=== PATIENT | female | born 1950 | race Caucasian/White ===

== ENCOUNTER → 2016-10-16 | Outpatient (CLI) | payer OTHER ==
[~2016-10-16] MED LIST: CALC1TAB87 PO; GABA100C4 PO; GABA300C5 PO; HYDR-3533 PO; HYDR12.57 PO; IMIT25TA PO; KETO10 PO; PANT20 PO; TAMS5CAP PO; TRIA40P I-ARTICULR; ZOFR4TAB3 SL; ZOLP10TA3 PO; [UNRECOGNIZED DRUG - CODE]
[2016-10-16 10:04] LABS: ALKALINE PHOSPHATASE 117 U/L (45-117); ALT (GPT) 20 U/L (10-53); ANION GAP 10 MEQ/L (5-15); AST (GOT) 16 U/L (15-37); BICARBONATE 23.1 MEQ/L (21.0-32.0); BLOOD UREA NITROGEN 13 MG/DL (7-18); CHLORIDE 107 MEQ/L (98-107); GLOMERULAR FILTRATION RATE 85 ML/MIN (>89); GLUCOSE,FASTING 93 MG/DL (74-99); POTASSIUM 3.6 MEQ/L (3.5-5.1); SODIUM (NA) 140 MEQ/L (136-145); TOTAL BILIRUBIN ADULT 0.4 MG/DL (0.2-1.0)
== END ==
LOC: CLAB 09:20
PROVIDERS: ATTEND Internal Medicine Endocrinology, Diabetes & Metabolism
DX: E21.0 Primary hyperparathyroidism (principal); N25.81 Secondary hyperparathyroidism of renal origin
CPT/HCPCS: 36415; 80053; 82652; 83970

== ENCOUNTER → 2016-12-13 | Outpatient (CLI) | payer OTHER, MEDICARE | LOC: CLAB 07:07 | PROVIDERS: ATTEND Family Medicine | DX: E03.9 Hypothyroidism, unspecified (principal) | CPT/HCPCS: 36415; 84443 ==

== ENCOUNTER 2017-01-29 00:43 | Emergency (ER) | payer MEDICARE, OTHER ==
[~2017-01-29] VITALS: Ht 172.7 cm; Wt 88.0 kg
[~2017-01-29 00:43] MED LIST changes: -GABA100C4 PO; -KETO10 PO; -TAMS5CAP PO; -TRIA40P I-ARTICULR; -[UNRECOGNIZED DRUG - CODE]
[2017-01-29 00:50] VITALS: BP 227/97; PULSE 65; RESP 18; TEMP 98; O2SAT 99
[2017-01-29 01:35] LABS: BACTERIA, URINE RARE /hpf; BLOOD, URINE NEG (NEG); COMMENT (UR) CULT NOT INDICATED; CULTURE IF INDICATED CULT NOT INDICATED; GLUCOSE,URINE NEG (NEG); KETONE, URINE 10 mg/dL (NEG); NITRITE,URINE NEG (NEG); PH, URINE 5.5 (5.0-8.5); SQUAMOUS EPITHELIAL CELL URINE 1 /hpf (0-5); URINE COLOR LIGHT-YELLOW (YELLW/STRAW)
[2017-01-29 01:39] VITALS: BP 179/77; PULSE 66; RESP 18; O2SAT 98
[2017-01-29] MEDS ORDERED: SODIUM CHLORID 0.9% 500 ML INJ 500 ML IV ONE (01:45)
[2017-01-29] MEDS ORDERED: KETOROLAC TROMETHAMINE 30 MG/ML (IVP) VIAL IV PUSH ONE (02:00)
[2017-01-29 02:09] LABS: AUTOMATED NEUTROPHIL # 7.4 TH/MM3 (1.8-7.7); BASOPHIL # 0.1 TH/MM3 (0-0.2); BASOPHIL % 0.9 % (0.0-2.0); EOSINOPHIL # 0.1 TH/MM3 (0-0.4); EOSINOPHIL % 1.1 % (0.0-4.0); HEMATOCRIT 37.3 % (35.0-46.0); LYMPH % 14.9 % (9.0-44.0); LYMPHOCYTE # 1.5 TH/MM3 (1.0-4.8); MEAN CELL VOLUME 74.4 FL (80.0-100.0); MEAN CORPUSCULAR HEMOGLOBIN 24.3 PG (27.0-34.0); MEAN CORPUSCULAR HGB CONC 32.7 % (32.0-36.0); MONO % 10.5 % (0.0-8.0); NEUT % 72.6 % (16.0-70.0); PLATELET COUNT 259 TH/MM3 (150-450); RED BLOOD COUNT 5.01 MIL/MM3 (4.00-5.30); RED CELL DISTRIBUTION WIDTH 19.8 % (11.6-17.2); WHITE BLOOD COUNT 10.2 TH/MM3 (4.0-11.0)
[2017-01-29 02:17] LABS: HEMO FLAGS AUTO DIFF
[2017-01-29 02:21] LABS: ALT (GPT) 22 U/L (10-53); ANION GAP 8 MEQ/L (5-15); AST (GOT) 22 U/L (15-37); BICARBONATE 22.8 MEQ/L (21.0-32.0); BLOOD UREA NITROGEN 11 MG/DL (7-18); CHLORIDE 108 MEQ/L (98-107); GLOMERULAR FILTRATION RATE 69 ML/MIN (>89); POTASSIUM 3.8 MEQ/L (3.5-5.1); SODIUM (NA) 139 MEQ/L (136-145)
[2017-01-29 02:23] LABS: ALKALINE PHOSPHATASE 137 U/L (45-117); TOTAL BILIRUBIN ADULT 0.3 MG/DL (0.2-1.0)
[2017-01-29 02:45] VITALS: BP 182/77; PULSE 63; RESP 18; O2SAT 98
--- NOTE | 2017-01-29 02:56 | RADRPT ---
EXAM DATE/TIME: 01/29/2017 02:12 [place] COMPARISON: CT ABDOMEN & PELVIS W/O CONTRAST, October 26, 2013, 20:57. INDICATIONS : Left flank pain. ORAL CONTRAST: No oral contrast ingested. RADIATION DOSE: 20.85 CTDIvol (mGy) MEDICAL HISTORY : Renal calculi. Hypertension. SURGICAL HISTORY : Gastric bypass. Tubal ligation.Cholecystectomy. ENCOUNTER: Initial ACUITY: 1 day PAIN SCALE: 5/10 LOCATION: Left flank TECHNIQUE: Volumetric scanning of the abdomen and pelvis was performed. Using automated exposure control and ad justment of the mA and/or kV according to patient size, radiation dose was kept as low as reasonably achievable to obtain optimal diagnostic quality images. FINDINGS: There is parenchymal scarring on the left. The liver and spleen are normal in size and no focal defec ts are identified. There is previous gastric bypass. The gallbladder is absent. The pancreas demonstr ates normal contour without evidence of mass or ductal dilatation. The adrenal glands are unremarkabl e. The right kidney is unremarkable. There is left hydronephrosis and hydroureter with 2 4 mm stone i nvolving the distal ureter as well as a tiny punctate stone measuring 1 mm at the left ureterovesical junction. No abnormally enlarged lymph nodes are identified. Examination of the pelvis demonstrates no evidence of free fluid or pelvic mass. No abnormally enlarg ed inguinal or retroperitoneal lymph nodes are present. The bladder is unremarkable. CONCLUSION: 1. Left-sided hydronephrosis and hydroureter with 2 4 mm stones involving the distal ureter as above. Gregg Garcia MD on January 29, 2017 at 2: 2. 47 Board Certified Radiologist. This report was verified electronically.
[2017-01-29] MEDS ORDERED: TAMS5CAP PO (03:05)
[2017-01-29] MEDS ORDERED: HYDR-3533 PO (03:05)
--- NOTE | 2017-01-29 03:05 | PD ---
HPI Chief Complaint: Flank/Kidney Pain Time Seen by Provider: 01:43 Travel History International Travel<30 days: No Contact w/Intl Traveler<30days: No Traveled to known affect area: No History of Present Illness HPI The patient is a 66 year old female who presents to the [facility] emergency department with a history of left flank pain that she reports began at approximately 10:22 PM. She reports that the pain is very similar to when she's had kidney stones in the past. She reports that her urologist is Dr. Freitas. She reports that she last had a kidney stone 2-3 years ago that required nephrostomy tube placement. She denies having any fevers or chills. She reports that she's had dry heaving 4. She denies having any diarrhea. Her last bowel movement was earlier today. She denies having any blood in her stool or black or tarry stools. She denies having any dysuria, however she has had urinary frequency and urgency this evening. The patient reports that the pain radiates around into the left lower quadrant of the abdomen. On review of systems, the patient denies any cough, congestion, neck pain, chest pain, shortness of breath, or neurologic symptoms. [facility] Past Medical History Narrative Medical The patient's past medical history is significant for kidney stones, history of GI bleed thought to be related to internal hemorrhoids, history of hyperparathyroidism status post parathyroidectomy, migraine headaches, history of hypertension, insomnia Blood Disorders: No Anxiety: No Depression: No Heart Rhythm Problems: No Cancer: No Cardiovascular Problems: Yes (USED TO TAKE rx) High Cholesterol: Yes (used to be on RX) Chest Pain: No Congestive Heart Failure: No Diabetes: No Diminished Hearing: No Endocrine: No Gastrointestinal Disorders: Yes (GASTRIC BYPASS 2011) Genitourinary: No Hepatitis: No Hiatal Hernia: Yes (REPAIRED IN GASTRIC BYPASS) Hypertension: Yes (HISTORY OF, NONE POST GASTRIC BYPASS) Immune Disorder: No Implanted Vascular Access Dvce: Yes Kidney Stones: Yes Musculoskeletal: Yes (HX OF LOWER BACK PROBLEMS) Neurologic: Yes (maigraines OTT) Psychiatric: Yes (SOME CLAUSTROPHOBIA) Reproductive: No Respiratory: Yes (HX OF SLEEP APNEA, NONE POST GASTRIC BYPASS, QUIT SMOKING 10 YEARS AGO) Immunizations Current: Yes Migraines: Yes Sleep Apnea: Yes (USES CPAP) Thyroid Disease: No Tetanus Vaccination: Unknown Influenza Vaccination: Yes Menopausal: Yes Tubal Ligation: Yes Past Surgical History Narrative Surgical The patient's past surgical history is significant for parathyroidectomy, tubal ligation, cholecystectomy, discectomy, breast reduction, right rotator cuff repair, Lasik eye surgery, nephrostomy tube placement. Abdominal Surgery: Yes ( BARIATRIC SURGERY 2011, CHOLECYSTECTOMY 1996) AICD: No Body Medical Devices: CLIPS FROM GALL BLADDER REMOVAL Cholecystectomy: Yes Genitourinary Surgery: Yes (PERCUTANEOUS NEPH TUBE 08/14,NEPHROURETERAL STENT ,STONE REMOVED 08/14) Gynecologic Surgery: Yes (TUBAL LIGATION 1995) Joint Replacement: No Pacemaker: No Thoracic Surgery: Yes (BILATERAL BREAST REDUCTION) Other Surgery: Yes Social History Alcohol Use: No Tobacco Use: No Substance Use: No Allergies-Medications (Allergen,Severity, Reaction): Coded Allergies: No Known Allergies (Verified , 01/04/17) Reported Meds & Prescriptions Reported Meds & Active Scripts Active Lortab (Hydrocodone-Acetaminophen) 5-325 Mg Tab 1 Tab PO Q6H PRN Flomax (Tamsulosin HCl) 0.4 Mg Cap 0.4 Mg PO HS Hydrochlorothiazide 12.5 Mg Cap 12.5 Mg PO BID Lortab (Hydrocodone-Acetaminophen) 5-325 Mg Tab 1 Tab PO Q4H PRN Gabapentin 300 Mg Cap 300 Mg PO TID Zolpidem (Zolpidem Tartrate) 10 Mg Tab 10 Mg PO HS PRN Zofran Odt (Ondansetron Odt) 4 Mg Tab 4 Mg SL Q6HR PRN Imitrex (Sumatriptan Succinate) 25 Mg Tab 25 Mg PO ONCE PRN If a satisfactory response has not been obtained at 2 hours, a second dose may be administered Reported Calcium 600 with Vitamin D (Calcium Carbonate-Cholecalciferol) 600-400 mg-Unit Tab 1 Tab PO TID Review of Systems Except as stated in HPI: all other systems reviewed are Neg General / Constitutional: No: Fever Eyes: No: Visual changes HENT: No: Headaches Cardiovascular: No: Chest Pain or Discomfort Respiratory: No: Shortness of Breath Gastrointestinal: Positive: Nausea, Vomiting, Abdominal Pain, No: Diarrhea, Hematemesis, Hematochezia, Constipation, Changes in Bowel Habits, Indigestion, Loss of Appetite Genitourinary: Positive: Urgency, Frequency, Flank Pain (left flank pain), No : Dysuria Musculoskeletal: No: Pain Skin: No Rash Neurologic: No: Weakness Psychiatric: No: Depression Endocrine: No: Polydipsia Hematologic/Lymphatic: No: Easy Bruising Physical Exam Narrative General: The patient is a well-developed well-nourished female, uncomfortable appearing on arrival, holding her left flank. Head and Neck exam: Head is normocephalic atraumatic. Eyes: EOMI, pupils are equal round and reactive to light. Nose: Midline septum with pink mucous membranes Mouth: Dentition unremarkable. Moist mucus membranes. Posterior oropharynx is not erythematous. No tonsillar hypertrophy. Uvula midline. Airway patent. Neck: No palpable lymphadenopathy. No nuchal rigidity. No thyromegaly. Cardiovascular: Regular rate and rhythm without murmurs, gallops, or rubs. Lungs: Clear to auscultation bilaterally. No wheezes, rhonchi, or rales. Abdomen: Soft, without tenderness to palpation in all 4 quadrants of the abdomen. No guarding, rebound, or rigidity. Normal bowel sounds are audible. No tenderness on palpation of McBurney's point. Negative [place] sign. Extremities: No clubbing, cyanosis, or edema. 2+ pulses in all 4 extremities. No calf tenderness on palpation. Back: No spinous process tenderness to palpation. No costovertebral angle tenderness to palpation. Neurologic Exam: Grossly nonfocal. Skin Exam: No rash noted. Intact skin that is warm and dry. Data Data Last Documented VS Vital Signs Date Time Temp Pulse Resp B/P Pulse Ox O2 Delivery O2 Flow Rate FiO2 01/29/17 04:06 87 18 188/74 99 01/29/17 01:39 Room Air 01/29/17 00:50 98.0 Orders Urinalysis - C+S If Indicated (01/29/17 01:00) Complete Blood Count With Diff (01/29/17 01:44) Comprehensive Metabolic Panel (01/29/17 01:44) C-Reactive Protein (Crp) (01/29/17 01:44) Lipase (01/29/17 01:44) Iv Access Insert/Monitor (01/29/17 01:44) Ecg Monitoring (01/29/17 01:44) Oximetry (01/29/17 01:44) Lactic Acid (01/29/17 01:44) Sodium Chlorid 0.9% 500 Ml Inj (Ns 500 M (01/29/17 01:45) Ct Abd/Pel W/O Iv Contrast (01/29/17 01:52) Ketorolac Inj (Toradol Inj) (01/29/17 02:00) Ondansetron Inj (Zofran Inj) (01/29/17 03:15) Labs Laboratory Tests Test 01/29/17 01/29/17 01:10 01:50 Urine Color LIGHT-YELLOW Urine Turbidity CLEAR Urine pH 5.5 Urine Specific [place] 1.015 Urine Protein NEG mg/dL Urine Glucose (UA) NEG mg/dL Urine Ketones 10 mg/dL Urine Occult Blood NEG Urine Nitrite NEG Urine Bilirubin NEG Urine Urobilinogen LESS THAN 2.0 MG/DL Urine Leukocyte Esterase NEG Urine RBC 2 /hpf Urine WBC LESS THAN 1 /hpf Urine Squamous Epithelial 1 /hpf Cells Urine Bacteria RARE /hpf Urine Yeast (Budding) RARE Microscopic Urinalysis Comment CULT NOT INDICATED White Blood Count 10.2 TH/MM3 Red Blood Count 5.01 MIL/MM3 Hemoglobin 12.2 GM/DL Hematocrit 37.3 % Mean Corpuscular Volume 74.4 FL Mean Corpuscular Hemoglobin 24.3 PG Mean Corpuscular Hemoglobin 32.7 % Concent Red Cell Distribution Width 19.8 % Platelet Count 259 TH/MM3 Mean Platelet Volume 10.0 FL Neutrophils (%) (Auto) 72.6 % Lymphocytes (%) (Auto) 14.9 % Monocytes (%) (Auto) 10.5 % Eosinophils (%) (Auto) 1.1 % Basophils (%) (Auto) 0.9 % Neutrophils # (Auto) 7.4 TH/MM3 Lymphocytes # (Auto) 1.5 TH/MM3 Monocytes # (Auto) 1.1 TH/MM3 Eosinophils # (Auto) 0.1 TH/MM3 Basophils # (Auto) 0.1 TH/MM3 CBC Comment AUTO DIFF Differential Comment AUTO DIFF CONFIRMED Platelet Estimate NORMAL Platelet Morphology Comment ENLARGED Sodium Level 139 MEQ/L Potassium Level 3.8 MEQ/L Chloride Level 108 MEQ/L Carbon Dioxide Level 22.8 MEQ/L Anion Gap 8 MEQ/L Blood Urea Nitrogen 11 MG/DL Creatinine 0.83 MG/DL Estimat Glomerular Filtration 69 ML/MIN Rate Random Glucose 116 MG/DL Lactic Acid Level 1.0 mmol/L Calcium Level 9.0 MG/DL Total Bilirubin 0.3 MG/DL Aspartate Amino Transf 22 U/L (AST/SGOT) Alanine Aminotransferase 22 U/L (ALT/SGPT) Alkaline Phosphatase 137 U/L C-Reactive Protein 0.62 MG/DL Total Protein 7.9 GM/DL Albumin 3.7 GM/DL Lipase 237 U/L MDM Medical Decision Making Medical Screen Exam Complete: Yes Emergency Medical Condition: Yes Medical Record Reviewed: Yes Interpretation(s) Last Impressions Abdomen/Pelvis CT 01/29/17 0152 Signed Impressions: Service Date/Time: Sunday, January 29, 2017 02:12 - CONCLUSION: 1. Left-sided hydronephrosis and hydroureter with 2 4 mm stones involving the distal ureter as above. Gregg Garcia MD Differential Diagnosis Pyelonephritis, versus kidney stone, versus musculoskeletal strain, versus diverticulitis Narrative Course During the course of the patients emergency department visit, the patients history, examination, and differential diagnosis were reviewed with the patient. The patient had IV access obtained and blood work sent for analysis. The patient was placed on a court monitor with oximetry and blood pressure monitoring. A CT of the abdomen and pelvis without contrast was ordered to evaluate for possible kidney stone. The patient was initially provided normal saline 500 mL IV fluid bolus, Zofran 4 mg IV, Toradol 15 mg IV. The patients laboratory studies were reviewed and remarkable for a white count of 10.2, hemoglobin 12.2, platelets 259 with neutrophils 72.6, monocytes 10.5, CMP is remarkable for chloride of 108, glucose 116, alkaline phosphatase 137, C- reactive protein 0.62, lipase 237, lactic acid 1, urinalysis shows 10 ketones, rare bacteria, rare budding yeast. Radiology studies were reviewed and remarkable for a CT scan of the abdomen and pelvis shows a left sided hydronephrosis and hydroureter with 2, 4 mm stones involving the distal ureter. The patient on reexamination was reportedly feeling improved. She is agreeable with the plan to follow-up with her urologist. She will call for an appointment in the morning. The patient is resting comfortably and feels better, is alert and in no distress. The patients results and examination findings were discussed with the patient. The repeat examination is unremarkable and benign. The history, exam, diagnostic testing, and current condition do not suggest any significant pathology to warrant further testing, continued ED treatment, admission, or surgical evaluation at this point. The vital signs have been stable. The patient does not have uncontrollable pain, intractable vomiting, or other significant symptoms. The patient's condition is stable and appropriate for discharge. The patient will pursue further outpatient evaluation with a primary care physician or other designated or consulting physician as indicated in the discharge instructions. The patient expressed understanding and was agreeable with this plan. Diagnosis Primary Impression: Left ureteral calculus Referrals: David Freitas MD 1 day Patient Instructions: General Instructions, Kidney Stones (ED) Med/Other Pt SpecificInfo: Prescription(s) given Scripts Hydrocodone-Acetaminophen (Lortab)5-325 Mg Tab1 Tab PO Q6H PRN (PAIN) #12 TAB Ref 0 Prov:Sandie Perera MD 01/29/17 Tamsulosin (Flomax)0.4 Mg Cap0.4 Mg PO HS #7 CAP Ref 0 Prov:Sandie Perera MD 01/29/17 Disposition: 01 DISCHARGE HOME Condition: Stable Sandie Perera MD January 29, 2017 03:05
[2017-01-29 03:14] LABS: PLATELET ESTIMATE SMEAR NORMAL (NORMAL); PLATELET MORPHOLOGY ENLARGED (NORMAL); SCAN/DIFF AUTO DIFF CONFIRMED
[2017-01-29] MEDS ORDERED: ONDANSETRON HCL 4 MG/2 ML VIAL IV ONE (03:15)
[2017-01-29 04:06] VITALS: BP 188/74
[2017-01-31] MEDS ORDERED: KETO10 PO (17:19)
[2017-01-31] MEDS ORDERED: [UNRECOGNIZED DRUG - CODE] (17:20)
[2017-03-08] MEDS ORDERED: TRIA40P I-ARTICULR (16:31)
[2017-03-12] MEDS ORDERED: HYDR-3533 PO (06:32)
== END 2017-01-29 04:08 | disposition home or self-care (01) ==
LOC: NEPE 00:43
DX: N13.2 Hydronephrosis with renal and ureteral calculous obstruction (principal); I10 Essential (primary) hypertension
CPT/HCPCS: 74176; 80053; 81001; 83605; 83690; 85025; 86140; 96361; 96374; 96375; 99284; J1885; J2405; J7040

== ENCOUNTER 2018-02-26 09:14 | Emergency (ER) | payer MEDICARE, OTHER ==
[~2018-02-26] VITALS: Ht 175.3 cm; Wt 95.0 kg
[~2018-02-26 09:14] MED LIST changes: +HYDR-3516 PO; -HYDR-3533 PO; -PANT20 PO; +PROM25TA10 PO
[2018-02-26 09:19] VITALS: BP 189/88; PULSE 77; RESP 17; TEMP 97.7; O2SAT 96
--- NOTE | 2018-02-26 09:46 | PD ---
HPI Chief Complaint: Injury Time Seen by Provider: 09:42 Travel History International Travel<30 days: No Contact w/Intl Traveler<30days: No Traveled to known affect area: No History of Present Illness HPI 67-year-old female presents emergency department with injury to the right ankle. Patient states she was walking in her garage when she is tripped and fell causing pain in the lateral aspect of the right ankle. Patient denies syncope, hitting her head, or loss of consciousness. She has no other complaints of injury. Pain in the right ankle is now 8 out of 10. She is unable to bear weight. Patient also has some pain in the right knee with an anterior abrasion noted. She feels she may have "hyperextended" her right knee. She feels is somewhat swollen as well. She has no known drug allergies. PFSH Past Medical History Blood Disorders: No Anxiety: No Depression: No Heart Rhythm Problems: No Cancer: No Cardiovascular Problems: Yes (USED TO TAKE rx) High Cholesterol: Yes (used to be on RX) Chest Pain: No Congestive Heart Failure: No Diabetes: No Diminished Hearing: No Endocrine: No Gastrointestinal Disorders: Yes (GASTRIC BYPASS 2011) Genitourinary: No Hepatitis: No Hiatal Hernia: Yes (REPAIRED IN GASTRIC BYPASS) Hypertension: Yes (HISTORY OF, NONE POST GASTRIC BYPASS) Immune Disorder: No Implanted Vascular Access Dvce: Yes Kidney Stones: Yes Musculoskeletal: Yes (HX OF LOWER BACK PROBLEMS) Neurologic: Yes (maigraines OTT) Psychiatric: Yes (SOME CLAUSTROPHOBIA) Reproductive: No Respiratory: Yes (HX OF SLEEP APNEA, NONE POST GASTRIC BYPASS, QUIT SMOKING 10 YEARS AGO) Immunizations Current: Yes Migraines: Yes Sleep Apnea: Yes (USES CPAP) Thyroid Disease: No ?: Not Menopausal: Yes Tubal Ligation: Yes Past Surgical History Abdominal Surgery: Yes ( BARIATRIC SURGERY 2011, CHOLECYSTECTOMY 1996) AICD: No Body Medical Devices: CLIPS FROM GALL BLADDER REMOVAL Cholecystectomy: Yes Genitourinary Surgery: Yes (PERCUTANEOUS NEPH TUBE 08/14,NEPHROURETERAL STENT ,STONE REMOVED 08/14) Gynecologic Surgery: Yes (TUBAL LIGATION 1995) Joint Replacement: No Pacemaker: No Thoracic Surgery: Yes (BILATERAL BREAST REDUCTION) Other Surgery: Yes Social History Alcohol Use: No Tobacco Use: No Substance Use: No Allergies-Medications (Allergen,Severity, Reaction): Coded Allergies: No Known Allergies (Verified , 06/07/17) Reported Meds & Prescriptions Reported Meds & Active Scripts Active Hydrocodone-Acetaminophen 5-325 mg Tab 1 Tab PO Q6H PRN Hydrocodone-Acetaminophen 5-325 mg Tab 1 Tab PO Q4H PRN Phenergan (Promethazine HCl) 25 Mg Tablet 25 Mg PO Q6H PRN Imitrex (Sumatriptan Succinate) 25 Mg Tab 25 Mg PO ONCE PRN If a satisfactory response has not been obtained at 2 hours, a second dose may be administered Zolpidem (Zolpidem Tartrate) 10 Mg Tab 10 Mg PO HS PRN Hydrochlorothiazide 12.5 Mg Cap 12.5 Mg PO BID Gabapentin 300 Mg Cap 300 Mg PO TID Zofran Odt (Ondansetron Odt) 4 Mg Tab 4 Mg SL Q6HR PRN Reported Calcium 600 with Vitamin D (Calcium Carbonate-Cholecalciferol) 600-400 mg-Unit Tab 1 Tab PO TID Review of Systems General / Constitutional: No: Fever Eyes: No: Visual changes HENT: No: Headaches Cardiovascular: No: Chest Pain or Discomfort Respiratory: No: Shortness of Breath Gastrointestinal: No: Abdominal Pain Genitourinary: No: Dysuria Musculoskeletal: Positive: Arthralgias, Limited ROM, Pain Skin: No Rash Neurologic: No: Weakness Psychiatric: No: Depression Endocrine: No: Polydipsia Hematologic/Lymphatic: No: Easy Bruising Physical Exam Narrative GENERAL: Patient appears in mild to moderate distress. SKIN: Warm and dry. Normal color. Normal turgor. There is a superficial abrasion to the right anterior knee HEAD: Atraumatic. Normocephalic. Nontender. EYES: Pupils equal and round. No scleral icterus. No injection or drainage. ENT: No nasal bleeding or discharge. Mucous membranes pink and moist. Pharynx is clear. Airway is patent. NECK: Trachea midline. No bony tenderness or step-off. Range of motion is full and unremarkable. CARDIOVASCULAR: Regular rate and rhythm. RESPIRATORY: No accessory muscle use. Clear to auscultation. Breath sounds equal bilaterally. GASTROINTESTINAL: Abdomen soft, non-tender, nondistended. Hepatic and splenic margins not palpable. MUSCULOSKELETAL: Extremities without clubbing, cyanosis, or edema. No obvious deformities. Patient has tenderness with palpation to the knee and with the extension. There appears to be mild effusion to the knee joint without laxity. The right ankle has obvious swelling over the right lateral malleolus. Range of motion of the foot is limited secondary to pain NEUROLOGICAL: Awake and alert. No obvious cranial nerve deficits. Motor grossly within normal limits. Five out of 5 muscle strength in the arms and legs. Normal speech. PSYCHIATRIC: Appropriate mood and affect; insight and judgment normal. Data Data Last Documented VS Vital Signs Date Time Temp Pulse Resp B/P (MAP) Pulse Ox O2 Delivery O2 Flow Rate FiO2 02/26/18 09:19 97.7 77 17 189/88 (121) 96 Orders Orders Ankle, Complete ([id number]) (02/26/18 09:41) Knee, Complete (4vws) (02/26/18 09:46) Splint Or Brace Apply/Monitor (02/26/18 10:49) Splint Or Brace Apply/Monitor (02/26/18 10:49) Crutches (02/26/18 10:49) MDM Medical Decision Making Medical Screen Exam Complete: Yes Emergency Medical Condition: Yes Differential Diagnosis Slip and fall. Right ankle sprain. Knee sprain. Abrasion. Contusion. Fracture Narrative Course Patient is medically stable at time of exam. X-rays of the right knee and right ankle are ordered. No fractures are identified in either the ankle or the knee per radiologist. Patient is placed in an Rubén bandage to the right ankle with stirrup ankle splint applied over it. This should be worn as needed for comfort. Patient also placed in the right knee immobilizer and crutches for comfort as well. Patient is given a prescription for hydrocodone/acetaminophen 5/325 one every 6 hours as needed pain #12. Patient should elevate and ice the areas frequently. Patient can bear weight as tolerated. Patient can follow-up with her orthopedist as needed. Diagnosis Primary Impression: Fall Qualified Codes: W19.XXXA - Unspecified fall, initial encounter Additional Impressions: Moderate right ankle sprain Qualified Codes: S93.401A - Sprain of unspecified ligament of right ankle, initial encounter Right knee sprain Qualified Codes: S83.91XA - Sprain of unspecified site of right knee, initial encounter Patient Instructions: Ankle Stirrup Splint (ED), Crutch Instructions (ED), General Instructions Additional Instructions: No fractures are identified in either the ankle or the knee per radiologist. Patient is placed in an Rubén bandage to the right ankle with stirrup ankle splint applied over it. This should be worn as needed for comfort. Patient also placed in the right knee immobilizer and crutches for comfort as well. Patient is given a prescription for hydrocodone/acetaminophen 5/325 one every 6 hours as needed pain #12. Patient should elevate and ice the areas frequently. Patient can bear weight as tolerated. Patient can follow-up with her orthopedist as needed. Med/Other Pt SpecificInfo: Prescription(s) given Scripts Hydrocodone-Acetaminophen (Hydrocodone-Acetaminophen) 5-325 mg Tab 1 TAB PO Q6H Y for PAIN, #12 TAB 0 Refills Prov: Wilton Pacheco MD 02/26/18 Disposition: 01 DISCHARGE HOME Condition: Stable Ruiz Chen February 26, 2018 09:46
--- NOTE | 2018-02-26 10:40 | RADRPT ---
EXAM DATE: 02/26/2018 10:35 AM EDT AGE/SEX: 67 years / Female INDICATIONS: Right ankle pain around lateral malleolus after trip and fall. CLINICAL DATA: This is the patient's initial encounter. Patient reports that signs and symptoms have been present for 1 day and indicates a pain score of 7/10. MEDICAL/SURGICAL HISTORY: None. None. COMPARISON: No prior [place] exams available for comparison. FINDINGS: 3 views of the right ankle demonstrate no fracture or dislocation. Ankle mortise is intact. There is lateral and anterior ankle soft tissue swelling. No radiopaque foreign body is identified. There is d egenerative change at the talonavicular joint. CONCLUSION: Lateral and anterior ankle soft tissue swelling. However, no fracture is identified. Electronically signed by: Javier Iqbal MD 02/26/2018 10:39 AM EDT
--- NOTE | 2018-02-26 10:44 | RADRPT ---
EXAM DATE: 02/26/2018 10:36 AM EDT AGE/SEX: 67 years / Female INDICATIONS: Overall right knee pain after trip and fall. CLINICAL DATA: This is the patient's initial encounter. Patient reports that signs and symptoms have been present for 1 day and indicates a pain score of 8/10. MEDICAL/SURGICAL HISTORY: None. None. COMPARISON: No prior [place] exams available for comparison FINDINGS: The examination demonstrates moderate tricompartmental osteoarthritis. There is no significant joint effusion. No acute fracture or destructive lesion is identified. CONCLUSION: Moderate tricompartmental osteoarthritis. Electronically signed by: Percy Sofia MD 02/26/2018 10:42 AM EDT
[2018-02-26] MEDS ORDERED: HYDR-3516 PO (10:51)
== END 2018-02-26 11:28 | disposition home or self-care (01) ==
LOC: NEPK 09:14
DX: S93.401A Sprain of unspecified ligament of right ankle, initial encounter (principal); S83.91XA Sprain of unspecified site of right knee, initial encounter; W01.0XXA Fall on same level from slipping, tripping and stumbling without subsequent striking against object, initial encounter; Y93.01 Activity, walking, marching and hiking; Y92.008 Other place in unspecified non-institutional (private) residence as the place of occurrence of the external cause
CPT/HCPCS: 73564; 73610; 99284; E0113; L1830; L1906